=== PATIENT | female | born 1995 | race Caucasian/White ===

== ENCOUNTER 2022-02-07 19:47 | Emergency (ER) | payer OTHER ==
[~2022-02-07] VITALS: Ht 160 cm; Wt 57.8 kg
[2022-02-07 20:00] VITALS: BP 130/79
[2022-02-07 20:59] LABS: BASOPHILS # (AUTO) 0.1 K/uL (0.00-0.22); EOSINOPHILS # (AUTO) 0.1 K/uL (0-0.4); EOSINOPHILS % (AUTO) 1.6 % (0.0-4.0); HEMATOCRIT 38.5 % (36-48); HEMOGLOBIN 13.3 g/dL (12.0-16.0); LYMPHOCYTES # (AUTO) 2.1 K/uL (2.5-16.5); MEAN CORPUSCULAR HEMOGLOBIN 29 pg (27-31); MEAN CORPUSCULAR HGB CONC 35 g/dL (33-37); MEAN CORPUSCULAR VOLUME 85.3 fL (80-94); MONOCYTES # (AUTO) 0.7 K/uL (0.8-1.0); MONOCYTES % (AUTO) 8.2 % (1.7-9.3); NEUTROPHILS # (AUTO) 5.2 K/uL (1.8-7.7); NEUTROPHILS % (AUTO) 63.2 % (42.2-75.2); PLATELET COUNT (AUTO) 258 K/uL (140-450); RED BLOOD CELL COUNT(AUTO) 4.51 MIL/uL (4.20-5.40); RED CELL DISTRIBUTION WIDTH 12.7 % (11.6-13.7); WHITE BLOOD COUNT (AUTO) 8.2 K/uL (4.8-10.8)
[2022-02-07 21:38] LABS: ALBUMIN 3.6 g/dL (3.4-5.0); ANION GAP 13.2 (8-16); CARBON DIOXIDE 26.5 mmol/L (21-32); CREATININE 1.1 mg/dL (0.6-1.3); POTASSIUM 3.7 mmol/L (3.5-5.1); TOTAL BILIRUBIN 0.5 mg/dL (0.0-1.0)
[2022-02-07] MEDS ORDERED: DOXY-690 PO (21:51)
[2022-02-07] MEDS ORDERED: BACTO TP (21:51)
[2022-02-07 21:58] VITALS: BP 130/79
== END 2022-02-07 21:58 | disposition home or self-care (01) ==
LOC: MED 19:47
DX: L01.00 Impetigo, unspecified (principal); L03.114 Cellulitis of left upper limb; Z79.2 Long term (current) use of antibiotics
CPT/HCPCS: 36415; 80053; 85025; 87040; 87081; 99283

== ENCOUNTER 2023-03-03 17:44 | Emergency (ER) | payer OTHER ==
[~2023-03-03] VITALS: Ht 160 cm; Wt 58.1 kg
[~2023-03-03 17:44] MED LIST: BACTO TP; DOXY-690 PO
[2023-03-03 18:10] VITALS: BP 121/85
[2023-03-03] MEDS ORDERED: ACET-10509 PO (19:46)
[2023-03-03] MEDS ORDERED: AMOX500C25 PO (19:46)
[2023-03-03] MEDS ORDERED: CYCL-711 PO (19:46)
[2023-03-03 19:51] VITALS: BP 121/85
--- NOTE | 2023-03-03 19:51 | NUR ---
Patient discharged with v/s stable. Written and verbal after care instructions given and explained. Patient alert, oriented and verbalized understanding of instructions. Ambulatory with steady gait. All questions addressed prior to discharge. ID band removed. Patient advised to follow up with PMD. Rx of TYLENOL, AMOXICILLIN AND FLEXERIL given. Patient educated on indication of medication including possible reaction and side effects. Opportunity to ask questions provided and answered.
== END 2023-03-03 19:51 | disposition home or self-care (01) ==
LOC: MED 17:44
DX: S02.5XXA Fracture of tooth (traumatic), initial encounter for closed fracture (principal); S16.1XXA Strain of muscle, fascia and tendon at neck level, initial encounter; Z79.899 Other long term (current) drug therapy; X58.XXXA Exposure to other specified factors, initial encounter; Y93.89 Activity, other specified; Y92.89 Other specified places as the place of occurrence of the external cause; Y99.8 Other external cause status
CPT/HCPCS: 72040; 99283

== ENCOUNTER 2024-07-11 09:39 | Emergency (ER) | payer OTHER ==
[~2024-07-11] VITALS: Ht 160 cm; Wt 56.7 kg
[~2024-07-11 09:39] MED LIST changes: +ACET500T99 PO; +AMOX500C25 PO; +CYCL-711 PO
[2024-07-11 09:56] VITALS: BP 118/80; PULSE 99; RESP 18; TEMP 98.1; O2SAT 100
[2024-07-11 11:37] VITALS: TEMP 98.1
[2024-07-11] MEDS ORDERED: BACTO TP (12:35)
[2024-07-11 12:51] VITALS: BP 121/85; PULSE 91; RESP 18; O2SAT 97
== END 2024-07-11 12:51 | disposition home or self-care (01) ==
LOC: MED 09:39
DX: L01.00 Impetigo, unspecified (principal); Z79.899 Other long term (current) drug therapy
CPT/HCPCS: 99283